=== PATIENT | female | born 1970 | race Caucasian/White ===

== ENCOUNTER 2022-12-29 08:07 | Day surgery (SDC) | payer BC ==
[~2022-12-29 08:07] MED LIST: Sodium Chloride 0.9% 1000 ML 1,000 ML IV SCH
[2022-12-29 08:32] LABS: Hematocrit 41.3 % (35-47); Hemoglobin 13.2 g/dL (12.0-16.0); Mean Cell Volume 88.6 fL (78-100); Mean Corpuscular Hemoglobin 28.3 pg (26-32); Mean Platelet Volume 10.9 fL (7.5-11.0); Platelet Count 196 x10^3/uL (150-450); Red Blood Count 4.66 x10^6/uL (4.1-5.4); Red Cell Distribution Width 13.9 % (11.5-14.0); White Blood Count 6.4 x10^3/uL (4.0-10.5)
[2022-12-29 08:55] LABS: ALBUMIN 4.1 g/dL (3.5-5.0); ALKALINE PHOSPHATASE 79 U/L (38-126); ANION GAP 10.2 MEQ/L (5-15); BLOOD UREA NITROGEN 13 mg/dL (7-17); CHLORIDE 103 mmol/L (98-107); Calcium 8.7 mg/dL (8.4-10.2); Carbon Dioxide 31 mmol/L (22-30); Creatinine 1 0.53 mg/dL (0.52-1.04); EST GLOMERULAR FILTRATION RATE > 60.0 ML/MIN; Glucose 134 mg/dL (74-106); Potassium 3.9 mmol/L (3.5-5.1); SGOT/AST 143 U/L (14-36); SGPT/ALT 201 U/L (0-35); SODIUM 140 mmol/L (137-145); Total Protein 7.3 g/dL (6.3-8.2)
[2022-12-29] MEDS ORDERED: Lactated Ringers 1,000 ML IV SCH (09:00)
[2022-12-29] MEDS ORDERED: CEFAZOLIN 2 GM-D5W BAG** 2 GM/50 ML ML IV SCH (09:00)
[2022-12-29] MEDS ORDERED: Marcaine Mpf 0.5% Vial 30 Ml ONE (10:14)
[2022-12-29] MEDS ORDERED: Xylocaine 1% Vial 30 ML PF IJ ONE (10:14)
[2022-12-29] MEDS ORDERED: Versed 2 MG/2 ML Injection ONE ×2 (11:11→11:19)
[2022-12-29 12:16] VITALS: O2SAT 96
--- NOTE | 2022-12-29 12:27 | XRAY ---
Indication: Right foot bone biopsy. Intraoperative fluoroscopy provided for 17 seconds. 5 digital spot images ultimately demonstrates bone biopsy needle tip medial to head 1st metatarsal. Correlate with intraoperative findings/report.
[2022-12-29 12:42] VITALS: BP 133/75; PULSE 67
--- NOTE | 2022-12-29 14:34 | OP ---
SURGERY DATE/TIME: 12/29/2022 1108 PREOPERATIVE DIAGNOSES: 1) Osteomyelitis. 2) Diabetic foot ulcer right great toe. 3) Peripheral neuropathy. 4) Hallux valgus contracture. 5) Right foot pain. POSTOPERATIVE DIAGNOSES: 1) Osteomyelitis. 2) Diabetic foot ulcer right great toe. 3) Peripheral neuropathy. 4) Hallux valgus contracture. 5) Right foot pain. PROCEDURE: Bone biopsy of distal, proximal and first metatarsal right foot and great toe. SURGEON: Freedom Roldan DPM. MANAGER PHARMACY: None. ANESTHESIA: MAC. HEMOSTASIS: Pressure dressing. ESTIMATED BLOOD LOSS: Minimal. MATERIALS: Jamshidi needle x3. INJECTABLES: 20 cc of 1:1 mixture of 1% lidocaine plain and 0.5% bupivacaine plain injected in a Grey block-type fashion. INDICATION FOR SURGERY: Jovon is a very pleasant 52-year-old female well known to my service for a diabetic foot ulcer. MRI was taken as the patient was not progressing with healing of the ulceration and this demonstrated increased signal on T2 and distal phalanx and first metatarsal. There was no uptake on the proximal phalanx. There was positive osteomyelitis to the first metatarsal. Therefore she has chosen to proceed with a bone biopsy of these three bones. The patient understands all risks, complications and benefits of surgical intervention including but not limited to infection, hematoma, seroma, possibility of delayed wound healing or nonwound healing and possibility of need for further surgical intervention. This is likely planned to be a staged procedure based on what we find today versus an attempt at limb salvage. From that standpoint the patient understands the risks and wishes to proceed. DESCRIPTION OF PROCEDURE AND FINDINGS: The patient is brought into the OR and placed on the OR table in the supine position. At this time monitored anesthesia care was administered until the patient was sedated and the right lower extremity was prepped and draped in the typical sterile fashion and lowered onto the surgical field. At this time under fluoroscopic guidance, three separate Jamshidi needles were utilized at the medial aspect of the distal phalanx, medial aspect of the proximal phalanx and medial aspect of the first metatarsal. Bone biopsies were performed utilizing a Jamshidi needle. From that standpoint the bone biopsies were handed off the field for pathologic assessment. No soft tissue cultures were taken at this time as this is planned to be staged procedure and this will help to determine what the next step in proceeding with surgical intervention. The Jamshidi needle sites were sutured. The wound was dressed utilizing a dressing consisting of Betadine, Adaptic, 4x4, Kerlix and KOMAL. Following this, the patient was reversed from anesthesia and returned to the postoperative anesthesia care unit with vital signs stable and vascular status intact. The patient handled the anesthesia as well as the procedure without significant complication. Postoperative orders as indicated in the patient's discharge chart.
--- NOTE | 2023-01-01 12:23 | XRAY ---
17 seconds of fluoroscopy was used in surgery for a right foot bone biopsy.
== END 2022-12-29 13:06 | disposition home or self-care (01) ==
LOC: SDC 08:07
PROVIDERS: ATTEND Podiatrist Foot & Ankle Surgery
DX: M86.9 Osteomyelitis, unspecified (principal); E11.621 Type 2 diabetes mellitus with foot ulcer; E11.42 Type 2 diabetes mellitus with diabetic polyneuropathy; M20.11 Hallux valgus (acquired), right foot; M79.671 Pain in right foot
CPT/HCPCS: 20240; 36415; 73630; 76000; 80053; 82947; 85027; J0690; J2001; J2250

== ENCOUNTER 2023-01-12 06:00 | Day surgery (SDC) | payer BC ==
[2023-01-12] MEDS ORDERED: Xylocaine 1% Vial 30 ML PF IJ ONE (06:22)
[2023-01-12] MEDS ORDERED: Marcaine Mpf 0.5% Vial 30 Ml ONE (06:22)
[2023-01-12] MEDS ORDERED: DIPRIVAN 200 MG/20 ML IV ONE ×2 (06:23→07:54)
[2023-01-12] MEDS ORDERED: Versed 2 MG/2 ML Injection ONE (06:27)
[2023-01-12 06:29] LABS: Hemoglobin 13.3 g/dL (12.0-16.0); Mean Cell Volume 88.4 fL (78-100); Mean Corpuscular Hemoglobin 28.7 pg (26-32); Mean Corpuscular Hgb Concent. 32.4 g/dL (32-36); Mean Platelet Volume 11.7 fL (7.5-11.0); Platelet Count 216 x10^3/uL (150-450); Red Blood Count 4.64 x10^6/uL (4.1-5.4); Red Cell Distribution Width 13.2 % (11.5-14.0); White Blood Count 7.4 x10^3/uL (4.0-10.5)
[2023-01-12] MEDS ORDERED: CEFAZOLIN 2 GM-D5W BAG** 2 GM/50 ML ML IV SCH (06:30)
[2023-01-12] MEDS ORDERED: Lactated Ringers 1,000 ML IV SCH (06:30)
[2023-01-12 06:33] VITALS: RESP 16
[2023-01-12 06:36] LABS: ALBUMIN 4.1 g/dL (3.5-5.0); ALKALINE PHOSPHATASE 98 U/L (38-126); ANION GAP 12.1 MEQ/L (5-15); BLOOD UREA NITROGEN 13 mg/dL (7-17); CHLORIDE 106 mmol/L (98-107); Calcium 8.8 mg/dL (8.4-10.2); Carbon Dioxide 28 mmol/L (22-30); Creatinine 1 0.51 mg/dL (0.52-1.04); EST GLOMERULAR FILTRATION RATE > 60.0 ML/MIN; Glucose 131 mg/dL (74-106); Potassium 3.9 mmol/L (3.5-5.1); SGOT/AST 93 U/L (14-36); SGPT/ALT 213 U/L (0-35); SODIUM 142 mmol/L (137-145); Total Protein 7.1 g/dL (6.3-8.2)
[2023-01-12 06:38] LABS: INR 0.99 (0.8-3.0); PROTIME 10.8 SECONDS (9.4-12.5); PTT 26.6 SECONDS (25.1-36.5)
[2023-01-12] MEDS ORDERED: SUBLIMAZE 100 MCG/2 ML ONE (06:54)
[2023-01-12 08:53] VITALS: TEMP 97
[2023-01-12 09:13] VITALS: BP 130/78; PULSE 60; O2SAT 95
--- NOTE | 2023-01-12 09:20 | XRAY ---
Indication: Right 1st phalanx IP joint arthrodesis. Intraoperative fluoroscopy provided for 42 seconds. 8 digital spot images submitted for interpretation demonstrates arthrodesis 1st phalanx IP joint with single screw and orthopedic stable. Correlate with intraoperative findings/report.
--- NOTE | 2023-01-12 09:35 | OP ---
SURGERY DATE/TIME: 01/12/2023 0704 PREOPERATIVE DIAGNOSES: 1) Right hallux malleus. 2) Peripheral neuropathy. 3) History of diabetic foot wound. 4) Difficulty with ambulation right foot. POSTOPERATIVE DIAGNOSES: 1) Right hallux malleus. 2) Peripheral neuropathy. 3) History of diabetic foot wound. 4) Difficulty with ambulation right foot. PROCEDURE: Distal interphalangeal joint arthrodesis right great toe. SURGEON: Freedom Roldan DPM. TROLLEY OPERATOR: None. ANESTHESIA: Monitored anesthesia care with a preoperative local. HEMOSTASIS: Ankle tourniquet set to 250 mm of Mercury for 25 total tourniquet minutes. ESTIMATED BLOOD LOSS: Minimal. INJECTABLES: 15 cc of 1:1 mixture of 1% lidocaine plain and 0.5% bupivacaine plain injected in hallux block-type fashion. INDICATION FOR SURGERY: Jovon is a very pleasant 52-year-old female well known to my service for hallux malleus peripheral neuropathy and a wound that delayed healing over the course of the last several weeks. The position of the toe was the interphalangeal joint distal tip of the toe at its lateral extent secondary to a valgus angulation as well as hallux malleus. As a result, she has had trouble healing the wound. There was initially some concern of osteomyelitis. MRI demonstrated some increasing signal on T2 and drop out on T1 to the distal interphalangeal joint as well as the first metatarsal. At that time bone biopsies were taken demonstrating negative for osteomyelitis. At this time due to the fact that the patient has had significant amount of issue with healing, we have decided surgical offloading was necessary. At this time the patient understands all risks, complications and benefits of surgical intervention including but not limited to infection, hematoma, seroma, possibility of delayed wound healing, nonwound healing, possibility of infection of the bone and possible need for amputation at a later date. No guarantees have been provided as to the outcome of surgical intervention. At this time the patient was willing to proceed. Plenty of time was allowed for the patient to ask questions which were answered to her apparent satisfaction. DESCRIPTION OF PROCEDURE AND FINDINGS: At this time the patient is brought into the OR and placed on the OR table and monitored anesthesia care was administered until the patient was sedated. A well-padded ankle tourniquet was applied to the patient's right ankle and the tourniquet was set to 250 mm of Mercury. At this time the foot was prepped and draped in typical sterile fashion, lowered onto the surgical field. At this time an Esmarch was utilized to exsanguinate the foot and the tourniquet was set to 250 mm of Mercury. A horizontal incision was made over the distal interphalangeal joint where there was a significant amount of contracture quickly identifying slightly ankylosed distal interphalangeal joint. Careful dissection was carried down being careful not to damage any neurovascular structures. Once the joint was identified it was resected utilizing an 18 mm sagittal saw. At this time a larger wedge was taken at the dorsal aspect and the medial aspect in order to bring the toe into a normal alignment from its valgus and plantar flexed position at the distal interphalangeal joint. Once this was checked under fluoroscopic guidance, position was assessed and deemed to be adequate. Copious amounts of sterile saline were utilized to flush the surgical site. A 2 mm drill was utilized to fenestrate the surface. A K-wire was then retrograded out of the distal tip of the toe and then anterograded through the proximal phalanx utilizing the longitudinal cortex of the bone to insure adequate fixation this was once again checked under fluoroscopic guidance and a 4.0 x 40 VPC screw was then introduced gaining excellent compression. Following this a 10 x 8 Unitus Staple was then introduced from a dorsomedial aspect gaining even further compression of the joint insuring adequate compression. Copious amounts of sterile saline were then utilized to flush the surgical site. The capsule and the tendon were repaired utilizing 4-0 Monocryl. The subcu was then repaired utilizing 4-0 Monocryl in a simple interrupted buried-type fashion and then the skin was then coapted utilizing horizontal mattress-type fashion everting the skin edges. A dressing consisting of Betadine paint to the toe, Adaptic, 4x4, Kerlix and KOMAL was then applied to the foot. The patient was then reversed from anesthesia and returned to the postoperative anesthesia care unit with vital signs stable and vascular status intact. The patient handled the anesthesia as well as the procedure without significant complications. Postoperative orders as indicated in the patient's discharge chart.
--- NOTE | 2023-01-12 09:52 | XRAY ---
42 seconds of fluoroscopy was used in surgery for a right 1st phalanx IP joint arthrodesis.
== END 2023-01-12 09:25 | disposition home or self-care (01) ==
LOC: SDC 06:00
PROVIDERS: ATTEND Podiatrist Foot & Ankle Surgery
DX: M20.31 Hallux varus (acquired), right foot (principal); G62.9 Polyneuropathy, unspecified; R26.2 Difficulty in walking, not elsewhere classified; Z86.31 Personal history of diabetic foot ulcer; Z79.01 Long term (current) use of anticoagulants
CPT/HCPCS: 28755; 36415; 73630; 76000; 80053; 85027; 85610; 85730; C1713; J0690; J2001; J2250; J2704; J3010

== ENCOUNTER 2023-06-15 07:36 | Day surgery (SDC) | payer BC ==
[2023-06-15] MEDS ORDERED: Lactated Ringers 1,000 ML IV ONE (08:15)
[2023-06-15] MEDS ORDERED: CEFAZOLIN 2 GM-D5W BAG** 2 GM/50 ML ML IV ONE (08:15)
[2023-06-15 08:29] LABS: Hematocrit 35.1 % (35-47); Hemoglobin 10.9 g/dL (12.0-16.0); Mean Corpuscular Hemoglobin 26.7 pg (26-32); Mean Corpuscular Hgb Concent. 31.1 g/dL (32-36); Mean Platelet Volume 10.8 fL (7.5-11.0); Platelet Count 217 x10^3/uL (150-450); Red Blood Count 4.08 x10^6/uL (4.1-5.4); White Blood Count 6.1 x10^3/uL (4.0-10.5)
[2023-06-15] MEDS ORDERED: Lactated Ringers 1,000 ML IV SCH (08:30)
[2023-06-15] MEDS ORDERED: CEFAZOLIN 2 GM-D5W BAG** 2 GM/50 ML ML IV SCH (08:30)
[2023-06-15 08:42] LABS: ALBUMIN 3.7 g/dL (3.5-5.0); ANION GAP 10.8 MEQ/L (5-15); BILIRUBIN,TOTAL 0.6 mg/dL (0.2-1.3); Calcium 8.5 mg/dL (8.4-10.2); Creatinine 1 0.41 mg/dL (0.52-1.04); EST GLOMERULAR FILTRATION RATE 117.6 ML/MIN; Potassium 3.8 mmol/L (3.5-5.1); Total Protein 6.9 g/dL (6.3-8.2)
[2023-06-15] MEDS ORDERED: SUBLIMAZE 100 MCG/2 ML ONE (10:08)
[2023-06-15] MEDS ORDERED: Versed 2 MG/2 ML Injection ONE (10:08)
[2023-06-15] MEDS ORDERED: Xylocaine-Mpf 2% 5 Ml Vial ONE (10:08)
[2023-06-15] MEDS ORDERED: DIPRIVAN 200 MG/20 ML IV ONE (10:08)
[2023-06-15] MEDS ORDERED: XYLOCAINE 1% HCL 20 ML MDV IJ ONE (10:16)
[2023-06-15] MEDS ORDERED: Marcaine Mpf 0.5% Vial 30 Ml IJ ONE (10:16)
--- NOTE | 2023-06-15 11:20 | XRAY ---
Indication: Right second toe bone biopsy. Intraoperative fluoroscopy provided for 8 seconds. 4 digital spot images submitted for interpretation demonstrates bone biopsy of distal 2nd phalanx. There has been arthrodesis 1st phalanx with intact hardware. Correlate with intraoperative findings/report.
--- NOTE | 2023-06-15 11:20 | XRAY ---
Indication: Left foot hallux bone biopsy. Intraoperative fluoroscopy provided for 4 seconds. 2 digital spot images submitted for interpretation demonstrates bone biopsy needle adjacent to tuft 1st phalanx. Correlate with intraoperative findings/report.
[2023-06-15 11:21] VITALS: RESP 16
[2023-06-15 11:32] VITALS: BP 126/81; PULSE 68; TEMP 98.4; O2SAT 99
[2023-06-15] MEDS ORDERED: Sodium Chloride 0.9% 10 ML FLUSH Syringe PICC PRN (11:52)
--- NOTE | 2023-06-15 15:07 | XRAY ---
4 seconds of fluoroscopy was used in surgery for a left hallux bone biopsy.
--- NOTE | 2023-06-15 15:07 | XRAY ---
8 seconds of fluoroscopy was used in surgery for a right 2nd toe bone biopsy.
--- NOTE | 2023-06-19 10:06 | OP ---
SURGERY DATE/TIME: 06/15/2023 1024 PREOPERATIVE DIAGNOSES: 1) Osteomyelitis right second digit. 2) Osteomyelitis left hallux. 3) Diabetic peripheral neuropathy. 4) Controlled diabetes. 5) Digital contractures. 6) Chronic ulceration. POSTOPERATIVE DIAGNOSES: 1) Osteomyelitis right second digit. 2) Osteomyelitis left hallux. 3) Diabetic peripheral neuropathy. 4) Controlled diabetes. 5) Digital contractures. 6) Chronic ulceration. PROCEDURES: 1) Incision and drainage with bone debridement to distal tip of right second toe distal phalanx. 2) Incision and drainage with bone debridement to the distal tip of the left hallux with bone biopsy. SURGEON: Freedom Roldan DPM. PLANTING MACHINE OPERATOR: None. ANESTHESIA: Monitored anesthesia care with intraoperative local block consisting of 20 cc of a 1:1 mixture of 1% lidocaine plain and 0.5% bupivacaine plain injected in a digital and hallux block respectively of 10 cc each. HEMOSTASIS: Pressure dressing. ESTIMATED BLOOD LOSS: Approximately 5 cc. MATERIALS: 3-0 Nylon. INJECTABLES: 20 cc of 1:1 mixture of 1% lidocaine plain and 0.5% bupivacaine plain, 10 cc injected into the left hallux in a hallux block-type fashion and 10 cc injected in a digital block to the second digit of the right foot. INDICATION FOR SURGERY: Jovon is a very pleasant 52-year-old female who presented to my office initially for a right hallux ulceration, concerns for osteomyelitis were brought up with a MRI after several weeks of failing conservative therapy. Following bone biopsies confirming that the bone was clean of infection, the wound was healed and an interphalangeal joint fusion was performed to the right hallux. The patient presented approximately six weeks later with two new wounds to the second digit of the right foot and the hallux of the left foot. As a result, the patient indicates that the wound started shortly thereafter. The previous wound had healed. The patient did not inform us for approximately three weeks prior to. The wounds did appear infected and did grow gram-positive bacteria. She was placed on two weeks of oral antibiotics and also in that period of time did have some cardiac intervention with failed stent placement. Following this the patient was able to get a MRI approximately five weeks after the wounds had begun which demonstrated some clinical indications and some radiographic indications demonstrating a T2 uptake and T1 dropout characteristic of osteomyelitis. At this time, the radiologic appearance does appear to be isolated to the distal phalanx of the second and the hallux. As a result discussion was held with the patient in regards to options. We would like to proceed with a conservative enough option that would not result in an amputation and decided on six to eight weeks of IV antibiotics as well as bone biopsies and debridement from a cosmetic standpoint. The patient would not notice a significant difference following the debridement particularly the second digit of the right foot if successful essentially debridement for the purpose of eradicating the distal phalanx and hopefully stop the spread of the infection. The patient understands this and wishes to proceed. The patient understands all risks, complications and benefits of surgical intervention at this time including but not limited to infection, hematoma, seroma, possibility of delayed wound healing, failed intraoperative intervention and possible need for amputation of the digits to the bilateral lower extremities. For this reason, no guarantees were provided as to the outcome. It is at this time we decided to proceed. DESCRIPTION OF PROCEDURE AND FINDINGS: The patient is brought into the OR and placed on the OR table in the supine position. At this time monitored anesthesia care was administered until the patient was sedated. The bilateral lower extremities were prepped and draped in the typical sterile fashion and lowered onto the surgical field. At this time, attention was directed to the left hallux where the wound was identified and bone was exposed. Debridement took place utilizing a rongeur and curette down to the level of the bone. From that standpoint, a small poke hole was made utilizing a 15 and a trocar bone biopsy was pulled one for culture and one for pathology, this was handed off the field at this time. Following this copious amounts of sterile saline were utilized to flush the surgical site and a single stitch was made at the poke hole where the trocar bone biopsies were obtained. Following this, attention was directed to the second digit where a fish-mouth incision was made at the distal tip of the digit. Rongeur was utilized to in effect remove the distal phalanx entirely however leaving the cosmetic appearance of the second digit intact this was handed off the field for both path and culture at this time. Following this, copious amounts of sterile saline were utilized to flush the surgical site. 3-0 Nylon was utilized in a trauma suture type fashion to retain tension on the edges of the wound while the central aspect was allowed open to drain. Following this, a dressing consisting of Betadine, 2x2 and Coban was applied to the bilateral digits. The patient was then reversed from anesthesia and returned to the postoperative anesthesia care unit with vital signs stable and vascular status intact. The patient handled the anesthesia as well as the procedure without significant complication. Postoperative orders as indicated in the patient's discharge chart.
== END 2023-06-15 11:55 | disposition home or self-care (01) ==
LOC: SDC 07:36 → EDSTATUS 14:29
PROVIDERS: ATTEND Podiatrist Foot & Ankle Surgery
DX: M86.9 Osteomyelitis, unspecified (principal); E11.42 Type 2 diabetes mellitus with diabetic polyneuropathy; M62.461 Contracture of muscle, right lower leg; M62.462 Contracture of muscle, left lower leg; E11.621 Type 2 diabetes mellitus with foot ulcer
CPT/HCPCS: 28005; 36415; 73630; 76000; 80053; 82947; 85027; 87046; 87070; 87075; 87116; 87205; 87206; 93005; J0690; J1642; J2250; J2704; J3010

== ENCOUNTER 2023-07-05 10:02 | Day surgery (SDC) | payer BC ==
[~2023-07-05 10:02] MED LIST changes: +Marcaine Mpf 0.5% Vial 30 Ml ONE; -Sodium Chloride 0.9% 1000 ML 1,000 ML IV SCH; +Xylocaine 1% Vial 30 ML PF IJ ONE
[2023-07-05] MEDS ORDERED: CEFAZOLIN 2 GM-D5W BAG** 2 GM/50 ML ML IV SCH (10:30)
[2023-07-05] MEDS ORDERED: Lactated Ringers 1,000 ML IV SCH (10:30)
--- NOTE | 2023-07-05 13:41 | XRAY ---
Indication: Right 2nd toe amputation. Intraoperative fluoroscopy provided for 2 seconds. 2 digital spot images submitted for interpretation demonstrates total amputation 2nd toe. Correlate with intraoperative findings/report.
[2023-07-05] MEDS ORDERED: Sodium Chloride 0.9% 10 ML FLUSH Syringe PICC PRN (14:34)
[2023-07-05 14:37] VITALS: O2SAT 98
[2023-07-05 14:51] VITALS: RESP 18; TEMP 97.8
[2023-07-05 14:57] VITALS: BP 110/62; PULSE 72
--- NOTE | 2023-07-05 16:47 | XRAY ---
2 seconds of fluoroscopy was used in surgery for a right 2nd toe amputation.
--- NOTE | 2023-07-06 11:49 | OP ---
SURGERY DATE/TIME: 07/05/2023 1302 PREOPERATIVE DIAGNOSES: 1) Osteomyelitis second digit right foot. 2) Diabetic peripheral neuropathy. 3) Diabetes, controlled. 4) Diabetic foot ulcer of left hallux. 5) Hallux malleus contracture left hallux. POSTOPERATIVE DIAGNOSES: 1) Osteomyelitis second digit right foot. 2) Diabetic peripheral neuropathy. 3) Diabetes, controlled. 4) Diabetic foot ulcer of left hallux. 5) Hallux malleus contracture left hallux. PROCEDURES: 1) Amputation to the level of first metatarsophalangeal joint right second digit with primary closure right foot. 2) Left hallux wound debridement. Postoperative measurements were 1.4 x 1.2 x 0.4. SURGEON: Freedom Roldan DPM. SUPERVISORY CBP OFFICER: None. HEMOSTASIS: Pressure dressing. ANESTHESIA: Monitored anesthesia care. ESTIMATED BLOOD LOSS: Approximately 3 cc. MATERIALS: 4-0 Monocryl, 3-0 Nylon. INJECTABLES: 10 cc of a 1:1 mixture of 1% lidocaine plain and 0.5% bupivacaine plain injected in a digital block-type fashion. INDICATION FOR SURGERY: Jovon is a very pleasant 52-year-old female very well known to my service for multiple wounds to the bilateral lower extremities which have subsequently healed. Unfortunately on our last encounter, the patient did have osteomyelitis of the distal phalanx of the second digit. An aggressive bone debridement took place. However, there were significant deformity and some residual indications on clean margin that there is continued osteomyelitis. Options were discussed with the patient in regards to the second digit of the right foot and we decided to proceed with an amputation at the level of the metatarsophalangeal joint as this will keep us out of a long drawn out process and allow us to proceed with addressing the soft tissue infection instead of addressing the bone infection. Bone biopsies were taken in respect to the left distal phalanx demonstrating no osteomyelitis. However, she still has a significantly sized wound to the left lower extremity and decision was made to proceed with a debridement of the left hallux on today's encounter. At this time, the patient understands all risks, complications and benefits of surgical intervention at this time including but not limited to infection, hematoma, seroma, possibility of delayed wound healing, nonwound healing and possible need for surgical intervention at a later date. No guarantees were provided as to the outcome. It is at this time we decided to proceed. DESCRIPTION OF PROCEDURE AND FINDINGS: The patient is brought into the OR and placed on the OR table in the supine position. At this time, monitored anesthesia care was administered until the patient was sedated. The bilateral lower extremities was prepped and draped in the typical sterile fashion and lowered onto the surgical field. At this time, an injection consisting of 10 cc of a 1:1 mixture of 1% lidocaine plain was injected in a digital block to the second digit of the right foot. At this time, a fish mouth incision was made at the base of the second digit. The incision was carried down to the level of bone utilizing a 15 blade this is carried out staying perpendicular to the longitudinal axis of the skin edge preventing any skiving and disarticulating the second digit. Copious amounts of sterile saline were utilized to flush the surgical site. The second digit was handed off the surgical field for pathologic assessment. At this time, the tendons were debrided. Wound edges were then coapted utilizing 4-0 Monocryl in subcutaneous fashion in a simple interrupted buried-type fashion and then 3-0 Nylon was utilized in a simple interrupted-type fashion in order to coapt the skin edges. A dressing consisting of Betadine, Adaptic, 4x4, Kerlix and KOMAL was applied to the patient's right foot. From that standpoint, attention was directed to the left hallux where predebridement the wound measured approximately 1.1 x 1.2 x 0.3 cm. At this time, wound debridement took place taking care of any nonviable or necrotic tissue at the wound margin and the base of the wound until a healthy bleeding base was identified. From this standpoint, wound measurements were taken once again and a wound demonstrating 1.4 x 1.2 x 0.4 was demonstrated. Copious amounts of sterile saline were utilized to flush this site. A dressing consisting of Betadine, Adaptic, 4x4 and Coban was applied to the patient's left foot. The patient was reversed from anesthesia and returned to the postoperative anesthesia care unit with vital signs stable and vascular status intact. The patient handled the anesthesia as well as the procedure without significant complication. Postoperative orders as indicated in the patient's discharge chart.
== END 2023-07-05 15:00 | disposition home or self-care (01) ==
LOC: SDC 10:02
PROVIDERS: ATTEND Podiatrist Foot & Ankle Surgery
DX: M86.9 Osteomyelitis, unspecified (principal); E11.42 Type 2 diabetes mellitus with diabetic polyneuropathy; E11.621 Type 2 diabetes mellitus with foot ulcer; M20.5X2 Other deformities of toe(s) (acquired), left foot
CPT/HCPCS: 28820; 73630; 76000; 82947; 97597; J0690; J1642; J2001

== ENCOUNTER 2023-08-28 06:12 | Day surgery (SDC) | payer BC ==
[2023-08-28] MEDS ORDERED: Lactated Ringers 1,000 ML IV ONE (06:18)
[2023-08-28] MEDS ORDERED: Marcaine Mpf 0.5% Vial 30 Ml ONE (06:18)
[2023-08-28] MEDS ORDERED: Xylocaine 1% Vial 30 ML PF IJ ONE (06:18)
[2023-08-28] MEDS: CEFAZOLIN 2 GM-D5W BAG** 2 GM/50 ML ML IV SCH (06:31)
[2023-08-28] MEDS: Lactated Ringers 1,000 ML IV SCH (06:32)
[2023-08-28 06:37] VITALS: RESP 18
[2023-08-28 06:41] LABS: Hematocrit 37.3 % (35-47); Hemoglobin 11.6 g/dL (12.0-16.0); Mean Cell Volume 84.8 fL (78-100); Mean Corpuscular Hemoglobin 26.4 pg (26-32); Mean Corpuscular Hgb Concent. 31.1 g/dL (32-36); Platelet Count 225 x10^3/uL (150-450); Red Cell Distribution Width 15.1 % (11.5-14.0); White Blood Count 6.8 x10^3/uL (4.0-10.5)
[2023-08-28 06:54] LABS: ANION GAP 11.1 MEQ/L (5-15); BILIRUBIN,TOTAL 0.4 mg/dL (0.2-1.3); Calcium 8.8 mg/dL (8.4-10.2); Creatinine 1 0.58 mg/dL (0.52-1.04); EST GLOMERULAR FILTRATION RATE 108.1 ML/MIN; Total Protein 6.8 g/dL (6.3-8.2)
[2023-08-28] MEDS ORDERED: DIPRIVAN 200 MG/20 ML IV ONE ×2 (06:54→07:38)
[2023-08-28] MEDS ORDERED: Xylocaine-Mpf 2% 5 Ml Vial ONE (06:55)
[2023-08-28] MEDS ORDERED: SUBLIMAZE 100 MCG/2 ML ONE (06:55)
[2023-08-28] MEDS ORDERED: Versed 2 MG/2 ML Injection ONE (06:56)
[2023-08-28] MEDS ORDERED: PHENYLEPHRINE HCL ONE (07:35)
[2023-08-28 08:48] VITALS: TEMP 96.9
[2023-08-28 09:01] VITALS: BP 108/68; PULSE 64; O2SAT 100
--- NOTE | 2023-08-29 10:44 | OP ---
SURGERY DATE/TIME: 08/28/2023 0712 PREOPERATIVE DIAGNOSES: 1) Osteomyelitis distal phalanx left hallux. 2) Peripheral neuropathy. 3) Chronic diabetic foot ulcer. 4) Left foot pain. POSTOPERATIVE DIAGNOSES: 1) Osteomyelitis distal phalanx left hallux. 2) Peripheral neuropathy. 3) Chronic diabetic foot ulcer. 4) Left foot pain. PROCEDURES: Disarticulation with amputation of left hallux first metatarsophalangeal joint. SURGEON: Freedom Roldan DPM. CODE CLERK: None. HEMOSTASIS: Pressure dressing. ANESTHESIA: Monitored anesthesia care. ESTIMATED BLOOD LOSS: Approximately 10 cc. MATERIALS: 2-0 Vicryl, 3-0 Nylon. INJECTABLES: 20 cc of a 1:1 mixture of 1% lidocaine plain and 0.5% bupivacaine plain injected in Grey block-type fashion. INDICATION FOR SURGERY: Jovon is a very pleasant 52-year-old female well known to our service for multiple diabetic foot ulcers. We have attempted limb salvage efforts which have worked to the right hallux. Unfortunately, did not work well for the left. Approximately two months ago we did perform bone biopsies to the left hallux which demonstrated no osteomyelitis. In the time between then, the patient had subsequent healed and then reopened and developed an infection. At this time x-rays were taken comparing from that time to now and there does appear to be osteolytic appearance to the bone consistent with osteomyelitis despite our attempts at salvage. At this time, options were discussed and the patient was amenable to proceeding with amputation of the left hallux. The patient understands all risks, complications and benefits of surgical intervention at this time including but not limited to infection, hematoma, seroma, possibility of delayed wound healing, nonwound healing and possible surgical intervention at a later date. Of particular interest in this case, I am concerned about the potential for dehiscence. Her weightbearing status following the procedure will be nonweightbearing for at least the first three weeks. The patient understands all of this and wishes to proceed at this time. DESCRIPTION OF PROCEDURE AND FINDINGS: The patient is brought into the OR and placed on the OR table in the supine position. At this time, the left lower extremity is prepped and draped in the typical sterile fashion and lowered onto the surgical field. At this time, a skin marker was utilized to plan out surgical incision in a medial racket-type fashion extending over the metatarsophalangeal joint and extending past the proximal phalangeal base in order to get adequate skin for closure. This was performed utilizing a 10 blade and prevent any scarring of the tissue going circumferentially around the base of the hallux. This was articulated utilizing a pair of dissection scissors making sure not to damage any neurovascular structures outside of the amputation area. From this standpoint, copious amounts of Bactisure was utilized to flush the surgical site. 3 liters of sterile saline were utilized to flush the Bactisure in the visible wound. Following this 2-0 Vicryl was then utilized to coapt the subcutaneous skin edges in a simple interrupted buried-type fashion and then 3-0 Nylon was utilized in an alternating horizontal mattress and simple interrupted-type fashion to coapt the skin edges under minimal tension. The patient was then dressed with a dressing consisting of Betadine, Adaptic, 4x4, Kerlix, ABD and KOMAL. The patient handled the anesthesia as well as the procedure without significant complication. Postoperative orders as indicated in the patient's discharge chart.
== END 2023-08-28 09:08 | disposition home or self-care (01) ==
LOC: SDC 06:12
PROVIDERS: ATTEND Podiatrist Foot & Ankle Surgery
DX: M86.9 Osteomyelitis, unspecified (principal); E11.42 Type 2 diabetes mellitus with diabetic polyneuropathy; E11.621 Type 2 diabetes mellitus with foot ulcer; L97.529 Non-pressure chronic ulcer of other part of left foot with unspecified severity; M79.672 Pain in left foot
CPT/HCPCS: 28820; 36415; 80053; 82947; 85027; A6260; J0690; J2001; J2250; J2371; J2704; J3010

== ENCOUNTER 2024-06-17 17:07 | Observation (INO) | payer BC ==
[2024-06-17] MEDS ORDERED: Klor Con ONE ×2 (18:42→21:48)
[2024-06-17] MEDS: Klor Con PO ONE ×2 (18:44→22:07)
[2024-06-17 18:48] LABS: Absolute Neutrophil Ct (ANC) 3.92 x10^3/uL (1.56-6.13); BASOPHIL % 0.5 % (0.1-1.2); Basophil (Absolute #) 0.03 x10^3/uL (0.01-0.08); Eosinophil % 1.2 % (0.7-5.8); Eosinophil (Absolute #) 0.08 x10^3/uL (0.04-0.36); Hemoglobin 7.7 g/dL (11.2-15.7); IMMATURE GRAN # 0.02 x10^3u/L (0.001-0.031); IMMATURE GRAN % 0.3 % (0.001-0.429); Lymphocytes % 27.7 % (19.3-51.7); Mean Cell Volume 82.5 fL (79.4-94.8); Mean Corpuscular Hemoglobin 25.4 pg (25.6-32.2); Mean Corpuscular Hgb Concent. 30.8 g/dL (32.2-35.5); Mean Platelet Volume 10.1 fL (9.4-12.3); Monocyte (Absolute #) 0.64 x10^3/uL (0.24-0.86); Monocytes % 9.9 % (4.7-12.5); Neutrophil % 60.4 % (34.0-71.1); Platelet Count 271 x10^3/uL (182-369); Red Blood Count 3.03 x10^6/uL (3.93-5.22); Red Cell Distribution Width 15.5 % (11.7-14.4); White Blood Count 6.5 x10^3/uL (3.98-10.04)
--- NOTE | 2024-06-17 19:04 | ERPHSYRPT ---
- History of Present Illness Source: patient Exam Limitations: no limitations Patient Subjective Stated Complaint: pt had blood drawn today and potassium was 2.9 Triage Nursing Assessment: Pt brought self to the ER, hypotensive, denies pain, pulses normal, skin n/w/d, no difficulty breathing, no chest pain, pt has been anemic for a month due to a GI bleed but states her numbers went from 7.7 to 7.8 earlier in the month, doesn't appear to be in any distress Hx Influenza Vaccination/Date Given: Yes Hx Pneumococcal Vaccination/Date Given: Yes <DANIEL MORAN - Last Filed: 06/17/24 19:01> <BAUTISTA HUSSEIN - Last Filed: 06/17/24 21:55> - History of Present Illness Time Seen by Provider: 06/17/24 18:01 Physician History: 53-year-old female with history of GI bleed with chronic anemia, coronary artery disease with stenting, hypertension, diabetes mellitus, chronic diarrhea for almost a month with intermittent low potassium is sent in ER by primary care after she had outpatient workup done as a routine and it showed potassium of 2.9. Patient denies any chest pain palpitations or shortness of breath. No abdominal pain nausea or vomiting reported. Patient reports she feels fatigued and tired all the time for almost a month since she had this GI bleed and her usual hemoglobin is around 7.8. No hematemesis or melena or hematochezia reported. (DANIEL MORAN) Allergies/Adverse Reactions: latex Adverse Reaction (Verified 06/17/24 17:26) Rash metformin Adverse Reaction (Verified 06/17/24 17:26) Diarrhea Home Medications: Atorvastatin Calcium [Lipitor 40Mg] 40 mg PO HS 12/28/22 [History] Cholecalciferol (Vitamin D3) [Vitamin D] 50,000 unit PO DAILY 12/28/22 [History] Clopidogrel Bisulfate [PLAVIX Tablet] 75 mg PO DAILY 12/28/22 [History] Empagliflozin [Jardiance] 25 mg PO DAILY 12/28/22 [History] Ezetimibe 10 mg [Zetia 10 MG] 10 mg PO HS 12/28/22 [History] Insulin Aspart [Novolog] 10 unit SQ TID 12/28/22 [History] Insulin Glargine,Hum.rec.anlog [Letiaglar Riapen U-100] 30 unit SQ BID 12/28/22 [History] Levothyroxine Sodium 150 Mcg [Synthroid 150 Mcg] 150 mcg PO DAILY 12/28/22 [History] Metoprolol Succinate [Toprol Xl] 12.5 mg PO DAILY 12/28/22 [History] Semaglutide [Ozempic] 2 mg SQ WEEKLY 12/28/22 [History] Aspirin EC 81 mg [Ecotrin 81 mg] 81 mg PO DAILY 06/13/23 [History] Isosorbide Mononitrate 60 mg [Imdur 60MG] 60 mg PO DAILY 06/15/23 [History] Nitroglycerin 0.4 mg (Ed) [Nitrostat 0.4 MG (ED)] 0.4 mg SL UD PRN 06/15/23 [History] PANTOPRAZOLE 40 mg Tablet [Protonix 40MG Tablet] 40 mg PO QAM 06/17/24 [History] Ropinirole HCl 1 mg PO HS 06/17/24 [History] Travel Risk - International Travel Have you traveled outside of the country in past 3 weeks: No - Emerging Infectious Disease Are you exhibiting symptoms associated with any current EIDs: No <DANIEL MORAN - Last Filed: 06/17/24 19:01> - Review of Systems Constitutional: Fatigue, Weakness Eyes: No Symptoms Ears, Nose, & Throat: No Symptoms Respiratory: No Symptoms Cardiac: No Symptoms Abdominal/Gastrointestinal: Diarrhea Genitourinary Symptoms: No Symptoms Musculoskeletal: No Symptoms Skin: No Symptoms Neurological: No Symptoms Psychological: No Symptoms <DANIEL MORAN - Last Filed: 06/17/24 19:01> - Past Medical History Pertinent Past Medical History: Yes Neurological History: No Pertinent History ENT History: No Pertinent History Cardiac History: High Cholesterol, Hypertension, Other Respiratory History: No Pertinent History Endocrine Medical History: Diabetes Type II, Hypothyroidism Musculoskeletal History: No Pertinent History GI Medical History: No Pertinent History History: No Pertinent History Psycho-Social History: No Pertinent History Female Reproductive Disorders: No Pertinent History Other Medical History: blocked heart arteries, with stents placed - Past Surgical History Past Surgical History: Yes Neuro Surgical History: No Pertinent History Cardiac: Cardiac Catheterization, Cardiac Stent Respiratory: No Pertinent History Gastrointestinal: Cholecystectomy Genitourinary: No Pertinent History Musculoskeletal: Orthopedic Surgery Female Surgical History: Section Other Surgical History: right hand left foot left leg, bariatric, plate in left leg below knee. multiple surgeries left foot, rt foot - Female History Hx Now: No (menopause) - Social History Smoking Status: Never smoker Exposure to second hand smoke: No Drug Use: none - Social Determinants of Health Will the patient participate in the screening: Yes Do you worry about a steady place to live?: No Do you have any problems with any of the following?: No known problems In the past 12 months,have you had to go without utilities?: No Transportation Issues: No Has anyone in your support network made you feel unsafe?: No Have you or anyone in your house had to go without enough: No <DANIEL MORAN - Last Filed: 06/17/24 19:01> - Physical Exam General Appearance: no apparent distress, alert Eye Exam: PERRL/EOMI, pale conjunctivae, other Ears, Nose, Throat Exam: normal ENT inspection, TM abnormal (L) Neck Exam: full range of motion Respiratory Exam: normal breath sounds, lungs clear Cardiovascular Exam: regular rate/rhythm, normal heart sounds Gastrointestinal/Abdomen Exam: soft, normal bowel sounds, No tenderness Back Exam: normal inspection Extremity Exam: normal inspection, normal range of motion Neurologic Exam: alert, oriented x 3, cooperative Skin Exam: pale SpO2 Interpretation: normal SpO2: 100 O2 Delivery: Room Air <DANIEL MORAN - Last Filed: 06/17/24 19:01> - Nursing Vital Signs Nursing Vital Signs: Initial Vital Signs Temperature 98.4 F 06/17/24 17:20 Pulse Rate 88 06/17/24 17:20 Respiratory Rate 10 L 06/17/24 17:20 Blood Pressure 94/55 06/17/24 17:20 O2 Sat by Pulse Oximetry 100 06/17/24 17:20 Pain Scale Pain Intensity 0 - Course EKG Interpreted by Me: RATE (80), Sinus Rhythm, NORMAL AXIS, NORMAL INTERVALS, NORMAL QRS <DANIEL MORAN - Last Filed: 06/17/24 19:01> Ordered Tests: Active Orders 24 hr Category Date Time Status IV Insertion STAT Care 06/17/24 20:25 Active BMP Stat Lab 06/17/24 20:48 Completed CBC W DIFF Stat Lab 06/17/24 18:45 Completed CMP Stat Lab 06/17/24 18:45 Completed MAG [MAGNESIUM] Stat Lab 06/17/24 18:45 Completed POCT GLUCOSE Stat Lab 06/17/24 21:44 Completed UA W/RFX UR CULTURE Stat Lab 06/17/24 19:41 Completed Medication Summary Generic Name Dose Route Start Last Admin Trade Name Freq PRN Reason Stop Dose Admin Sodium Chloride 500 mls @ 100 mls/hr 06/17/24 20:00 06/17/24 20:08 Sodium Chloride 0.9% 500 Ml IV 07/17/24 19:59 100 mls/hr .Q5H BRAVO Administration Discontinued Medications Generic Name Dose Route Start Last Admin Trade Name Freq PRN Reason Stop Dose Admin Potassium Chloride 40 meq 06/17/24 18:28 06/17/24 18:44 Potassium Chloride Tab 10 Meq Tab PO 06/17/24 18:29 40 meq STAT ONE Administration Potassium Chloride Confirm 06/17/24 18:42 Potassium Chloride Tab 10 Meq Tab Administered 06/17/24 18:43 Dose 40 meq .ROUTE .STK-MED ONE Potassium Chloride 40 meq 06/17/24 21:46 Potassium Chloride Tab 10 Meq Tab PO 06/17/24 21:47 STAT ONE Potassium Chloride Confirm 06/17/24 21:48 Potassium Chloride Tab 10 Meq Tab Administered 06/17/24 21:49 Dose 40 meq .ROUTE .STK-MED ONE Lab/Rad Data: Laboratory Result Diagrams 06/17/24 18:45 06/17/24 20:48 Laboratory Results 06/17/24 06/17/24 06/17/24 Range/Units 21:44 20:48 19:41 WBC (3.98-10.04) x10^3/uL RBC (3.93-5.22) x10^6/uL Hgb (11.2-15.7) g/dL Hct (34.1-44.9) % MCV (79.4-94.8) fL MCH (25.6-32.2) pg MCHC (32.2-35.5) g/dL RDW (11.7-14.4) % Plt Count (182-369) x10^3/uL MPV (9.4-12.3) fL Gran % (34.0-71.1) % Immature Gran % (Auto) (0.001-0.429) % Nucleat RBC Rel Count (0.00-0.2) % Eos # (Auto) (0.04-0.36) x10^3/uL Immature Gran # (Auto) (0.001-0.031) x10^3u/L Absolute Lymphs (auto) (1.18-3.74) x10^3/uL Absolute Monos (auto) (0.24-0.86) x10^3/uL Absolute Nucleated RBC (0.00-0.012) x10^3u/L Lymphocytes % (19.3-51.7) % Monocytes % (4.7-12.5) % Eosinophils % (0.7-5.8) % Basophils % (0.1-1.2) % Absolute Granulocytes (1.56-6.13) x10^3/uL Basophils # (0.01-0.08) x10^3/uL Sodium 139 (135-145) mmol/L Potassium 3.0 L* (3.5-5.1) mmol/L Chloride 107 (98-107) mmol/L Carbon Dioxide 28 (22-30) mmol/L Anion Gap 7.3 (5-15) MEQ/L BUN 11 (7-17) mg/dL Creatinine 0.51 L (0.52-1.04) mg/dL Estimated GFR 110.9 ML/MIN Glucose 48 L* (74-106) mg/dL POC Glucometer 91 (74 to 106) mg/dL Calcium 7.8 L (8.4-10.2) mg/dL Magnesium (1.6-2.3) mg/dL Total Bilirubin (0.2-1.3) mg/dL AST (14-36) U/L ALT (0-35) U/L Alkaline Phosphatase (38-126) U/L Serum Total Protein (6.3-8.2) g/dL Albumin (3.5-5.0) g/dL Urine Color Yellow (Yellow) Urine Appearance Clear (Clear) Urine pH 6.0 (4.6-8.0) Ur Specific Colman 1.010 (1.005-1.030) Urine Protein Negative (Negative) Urine Glucose (UA) >=1000 A (Negative) mg/dL Urine Ketones Negative (Negative) Urine Blood Negative (Negative) Urine Nitrite Negative (Negative) Urine Bilirubin Negative (Negative) Urine Urobilinogen 0.2 (0.2) mg/dL Ur Leukocyte Esterase Trace A (Negative) U Hyaline Cast (Auto) NONE SEEN (0-2) /LPF Urine Microscopic RBC 3-5 (0-5) /HPF Urine Microscopic WBC 6-10 A (0-5) /HPF Ur Epithelial Cells None Seen (None Seen) /HPF Urine Bacteria None Seen (None Seen) /HPF Urine Culture Reflexed NO (NO) 06/17/24 06/17/24 Range/Units 18:45 18:45 WBC 6.5 (3.98-10.04) x10^3/uL RBC 3.03 L (3.93-5.22) x10^6/uL Hgb 7.7 L (11.2-15.7) g/dL Hct 25.0 L (34.1-44.9) % MCV 82.5 (79.4-94.8) fL MCH 25.4 L (25.6-32.2) pg MCHC 30.8 L (32.2-35.5) g/dL RDW 15.5 H (11.7-14.4) % Plt Count 271 (182-369) x10^3/uL MPV 10.1 (9.4-12.3) fL Gran % 60.4 (34.0-71.1) % Immature Gran % (Auto) 0.3 (0.001-0.429) % Nucleat RBC Rel Count 0.0 (0.00-0.2) % Eos # (Auto) 0.08 (0.04-0.36) x10^3/uL Immature Gran # (Auto) 0.02 (0.001-0.031) x10^3u/L Absolute Lymphs (auto) 1.80 (1.18-3.74) x10^3/uL Absolute Monos (auto) 0.64 (0.24-0.86) x10^3/uL Absolute Nucleated RBC 0.00 (0.00-0.012) x10^3u/L Lymphocytes % 27.7 (19.3-51.7) % Monocytes % 9.9 (4.7-12.5) % Eosinophils % 1.2 (0.7-5.8) % Basophils % 0.5 (0.1-1.2) % Absolute Granulocytes 3.92 (1.56-6.13) x10^3/uL Basophils # 0.03 (0.01-0.08) x10^3/uL Sodium 138 (135-145) mmol/L Potassium 3.2 L (3.5-5.1) mmol/L Chloride 106 (98-107) mmol/L Carbon Dioxide 28 (22-30) mmol/L Anion Gap 7.1 (5-15) MEQ/L BUN 12 (7-17) mg/dL Creatinine 0.60 (0.52-1.04) mg/dL Estimated GFR 106.6 ML/MIN Glucose 72 L (74-106) mg/dL POC Glucometer (74 to 106) mg/dL Calcium 7.8 L (8.4-10.2) mg/dL Magnesium 1.7 (1.6-2.3) mg/dL Total Bilirubin 0.10 L (0.2-1.3) mg/dL AST 148 H (14-36) U/L ALT 152 H (0-35) U/L Alkaline Phosphatase 101 (38-126) U/L Serum Total Protein 5.0 L (6.3-8.2) g/dL Albumin 2.5 L (3.5-5.0) g/dL Urine Color (Yellow) Urine Appearance (Clear) Urine pH (4.6-8.0) Ur Specific Colman (1.005-1.030) Urine Protein (Negative) Urine Glucose (UA) (Negative) mg/dL Urine Ketones (Negative) Urine Blood (Negative) Urine Nitrite (Negative) Urine Bilirubin (Negative) Urine Urobilinogen (0.2) mg/dL Ur Leukocyte Esterase (Negative) U Hyaline Cast (Auto) (0-2) /LPF Urine Microscopic RBC (0-5) /HPF Urine Microscopic WBC (0-5) /HPF Ur Epithelial Cells (None Seen) /HPF Urine Bacteria (None Seen) /HPF Urine Culture Reflexed (NO) <DANIEL MORAN - Last Filed: 06/17/24 19:01> - Progress Progress: unchanged Counseled pt/family regarding: lab results, diagnosis, need for follow-up <BAUTISTA HUSSEIN - Last Filed: 06/17/24 21:55> - Progress Progress Note: 06/17/24 19:03 Workup is pending, care is transferred to Dr. Vazquez at end of my shift for reevaluation and final disposition. (DANIEL MORAN) 06/17/24 19:13 I assumed care from Dr Moran at 1900, pt vitally stable 06/17/24 20:37 pt admits to significant diarrhea in the past month - will start gentle IV fluid resuscitation, pt does have +1 LE edema b/l on exam repeat BMP pending 06/17/24 21:46 repeat bmp showed potassium decreased to 3.0 pt has had 2 episodes of diarrhea while in ED ordered 40meq potassium additional BG 47 - given orange juice and crackers w/ increase to 91 in setting of recent GI bleed and significant cardiac hx (multiple stents) I believe pt would benefit from potassium repletion and close cardiac monitoring, do not believe pt would be safe discharge while hypokalemic and dehydrated 06/17/24 21:53 I spoke w/ Dr Velasquez regarding pt case, he is willing to accept for obs (BAUTISTA HUSSEIN) Medical Desision Making - Diagnostic Testing Diagnostic test were ordered, analyzed, and reviewed by me: Yes Radiological Interpretation: Reviewed by me - Risk of complications The pt has a high risk of morbidity or mortality based on: Decision regarding hospitilization or escalation of hosp level of care <BAUTISTA HUSSEIN - Last Filed: 06/17/24 21:55> <DANIEL MORAN - Last Filed: 06/17/24 19:01> - Departure Departure Disposition: Observation Critical Care Time: No <BAUTISTA HUSSEIN - Last Filed: 06/17/24 21:55> - Departure Clinical Impression: Hypokalemia, Dehydration Diarrhea Qualifiers: Diarrhea type: unspecified type Qualified Code(s): R19.7 - Diarrhea, un specified Condition: Stable Referrals: ANUJ AYALA MD [Primary Care Provider] - Follow up/PCP as directed
[2024-06-17 19:08] LABS: ALBUMIN 2.5 g/dL (3.5-5.0); ANION GAP 7.1 MEQ/L (5-15); BILIRUBIN,TOTAL 0.1 mg/dL (0.2-1.3); Calcium 7.8 mg/dL (8.4-10.2); Creatinine 1 0.6 mg/dL (0.52-1.04); EST GLOMERULAR FILTRATION RATE 106.6 ML/MIN; MAGNESIUM 1.7 mg/dL (1.6-2.3); Potassium 3.2 mmol/L (3.5-5.1)
[2024-06-17 19:59] LABS: Appearance Clear (Clear); Bacteria None Seen /HPF (None Seen); Bilirubin Negative (Negative); Blood Negative (Negative); Epithelial Cells None Seen /HPF (None Seen); Glucose, Urine >=1000 mg/dL (Negative); Hyaline Casts NONE SEEN /LPF (0-2); Ketones Negative (Negative); Leukocyte Esterase Trace (Negative); Nitrite Negative (Negative); Protein,Urine Dip Negative (Negative); Urobilinogen 0.2 mg/dL (0.2)
[2024-06-17] MEDS: Sodium Chloride 0.9% 500 ML 500 ML IV SCH (20:08)
[2024-06-17 21:06] LABS: ANION GAP 7.3 MEQ/L (5-15); Calcium 7.8 mg/dL (8.4-10.2); Creatinine 1 0.51 mg/dL (0.52-1.04); EST GLOMERULAR FILTRATION RATE 110.9 ML/MIN
[2024-06-17] MEDS ORDERED: IMODIUM 2 MG PO PRN (23:38)
[2024-06-17] MEDS ORDERED: TYLENOL 325 MG PO PRN (23:38)
[2024-06-17] MEDS ORDERED: HUMALOG SQ PRN (23:38)
--- NOTE | 2024-06-18 00:02 | PCM.HP ---
History of Present Illness - Chief Complaint Chief Complaint: hypokalemia Date: 06/17/24 History of Present Illness: is a 53 year old female with history of diabetes, CAD, hypothyroidism, and recent GI bleed, here from PCP office with hypokalemia. Over , patient was in [place] with massive GI bleed requiring 7 units transfusion. She underwent upper and lower endoscopy, but no source of bleeding has been found. However, she has had no further bleeding since then. However, since that time, she has had frequent watery diarrhea, varying between 2 and 13 times per night. No melena since the initial episode. She was recently in [facility] again on 06/05 with that diarrhea, but was evaluated for her stable anemia that has been unchanged. At some point she had a negative C. difficile assay. She developed hypotension, so stopped taking her losartan. She feels generally exhausted from lack of sleep, but denies any focal weakness, numbness, or muscle spasms. She went to her PCP today for routine labs and was noted to be severely hypokalemic, and sent to the ED. she was given potassium chloride 40 mEq x 2 doses, but her levels remained around 3. However, her main concern is the persistent diarrhea that has not yet been resolved. - Review of Systems All Other Systems: Reviewed and Negative Medications & Allergies Home Medications: Home Medication List Atorvastatin Calcium [Lipitor 40Mg] 40 mg PO HS 12/28/22 [History Confirmed 06/17/24] Cholecalciferol (Vitamin D3) [Vitamin D] 50,000 unit PO DAILY 12/28/22 [History Confirmed 06/17/24] Clopidogrel Bisulfate [PLAVIX Tablet] 75 mg PO DAILY 12/28/22 [History Confirmed 06/17/24] Empagliflozin [Jardiance] 25 mg PO DAILY 12/28/22 [History Confirmed 06/17/24] Ezetimibe 10 mg [Zetia 10 MG] 10 mg PO HS 12/28/22 [History Confirmed 06/17/24] Insulin Aspart [Novolog] 10 unit SQ TID 12/28/22 [History Confirmed 06/17/24] Insulin Glargine,Hum.rec.anlog [Basaglar Kwikpen U-100] 30 unit SQ BID 12/28/22 [History Confirmed 06/17/24] Levothyroxine Sodium 150 Mcg [Synthroid 150 Mcg] 150 mcg PO DAILY 12/28/22 [History Confirmed 06/17/24] Metoprolol Succinate [Toprol Xl] 12.5 mg PO DAILY 12/28/22 [History Confirmed 06/17/24] Semaglutide [Ozempic] 2 mg SQ WEEKLY 12/28/22 [History Confirmed 06/17/24] Aspirin EC 81 mg [Ecotrin 81 mg] 81 mg PO DAILY 06/13/23 [History Confirmed 06/17/24] Isosorbide Mononitrate 60 mg [Imdur 60MG] 60 mg PO DAILY 06/15/23 [History Confirmed 06/17/24] Nitroglycerin 0.4 mg (Ed) [Nitrostat 0.4 MG (ED)] 0.4 mg SL UD PRN 06/15/23 [History Confirmed 06/17/24] PANTOPRAZOLE 40 mg Tablet [Protonix 40MG Tablet] 40 mg PO QAM 06/17/24 [History Confirmed 06/17/24] Ropinirole HCl 1 mg PO HS 06/17/24 [History Confirmed 06/17/24] Allergies/Adverse Reactions: Allergies Allergy/AdvReac Type Severity Reaction Status Date / Time latex AdvReac Rash Verified 06/17/24 17:26 metformin AdvReac Diarrhea Verified 06/17/24 17:26 - Past Medical History Past Medical History: Yes Neurological History: No Pertinent History ENT History: No Pertinent History Cardiac History: High Cholesterol, Hypertension, Other Respiratory History: Other Endocrine Medical History: Diabetes Type II, Hypothyroidism Musculoskelatal History: Fractures GI Medical History: GI Bleed, Other History: Other Pyscho-Social History: No Pertinent History Reproductive Disorders: No Pertinent History Comment: blocked heart arteries, 3 stents, bariatric surgery, pleural effusion (2000), kidney stone, Urologist-Dr. Cates, fx-pelvis & L Lower leg - Female History Are you now?: No (menopause) - Past Surgical History Past Surgical History: Yes Neuro Surgical History: No Pertinent History Cardiac History: Cardiac Catheterization, Cardiac Stent Respiratory Surgery: No Pertinent History GI Surgical History: Cholecystectomy Genitourinary Surgical Hx: Kidney Surgery Musculskeletal Surgical Hx: Amputation, Orthopedic Surgery Female Surgical History: Section Other Surgical History: right hand, bariatric, plate in left leg below knee. 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 toe amputation, L foot 1st toe amputation, kidney stent placed & removed Significant Family History: no pertinent family hx - Social History Smoking Status: Never smoker Exposure to second hand smoke: No Alcohol: None Drug Use: none - Social Determinants of Health Will the patient participate in the screening: Yes Do you worry about a steady place to live?: No Do you have any problems with any of the following?: No known problems In the past 12 months,have you had to go without utilities?: No Have you or anyone in your house had to go without enough: No Transportation Issues: No Has anyone in your support network made you feel unsafe?: No - Physical Exam Vital Signs: Vital Signs - 24 hr Temp Pulse Resp BP BP Pulse Ox 06/17/24 23:23 97.1 F 77 16 112/64 99 06/17/24 22:00 78 19 110/59 98 06/17/24 21:30 20 113/63 100 06/17/24 21:00 74 20 123/58 17 L 06/17/24 20:30 16 116/66 100 06/17/24 20:00 74 12 121/78 99 06/17/24 19:30 18 123/76 100 06/17/24 19:03 100 06/17/24 19:00 14 115/72 100 06/17/24 18:30 4 L 120/75 100 06/17/24 18:00 76 15 107/67 100 06/17/24 17:30 80 10 L 103/59 100 06/17/24 17:20 98.4 F 88 10 L 94/55 100 General Appearance: no apparent distress Neurologic Exam: alert, oriented x 3, No motor deficits, No sensory deficit, No motor weakness Eye Exam: eyes nml inspection, No scleral icterus Ears, Nose, Throat Exam: moist mucous membranes Neck Exam: non-tender, supple Respiratory Exam: normal breath sounds, lungs clear, No respiratory distress Cardiovascular Exam: regular rate/rhythm, normal heart sounds, edema (Overall decreased from prior), No murmur Gastrointestinal/Abdomen Exam: No tenderness, No distention Back Exam: normal inspection, normal range of motion Extremity Exam: No inflammation, No joint swelling Skin Exam: dry, No rash Results - Labs Lab/Micro Results: Lab Results-Last 24 Hours 06/17/24 06/17/24 06/17/24 Range/Units 18:45 18:45 19:41 WBC 6.5 (3.98-10.04) x10^3/uL RBC 3.03 L (3.93-5.22) x10^6/uL Hgb 7.7 L (11.2-15.7) g/dL Hct 25.0 L (34.1-44.9) % MCV 82.5 (79.4-94.8) fL MCH 25.4 L (25.6-32.2) pg MCHC 30.8 L (32.2-35.5) g/dL RDW 15.5 H (11.7-14.4) % Plt Count 271 (182-369) x10^3/uL MPV 10.1 (9.4-12.3) fL Gran % 60.4 (34.0-71.1) % Immature Gran % (Auto) 0.3 (0.001-0.429) % Nucleat RBC Rel Count 0.0 (0.00-0.2) % Eos # (Auto) 0.08 (0.04-0.36) x10^3/uL Immature Gran # (Auto) 0.02 (0.001-0.031) x10^3u/L Absolute Lymphs (auto) 1.80 (1.18-3.74) x10^3/uL Absolute Monos (auto) 0.64 (0.24-0.86) x10^3/uL Absolute Nucleated RBC 0.00 (0.00-0.012) x10^3u/L Lymphocytes % 27.7 (19.3-51.7) % Monocytes % 9.9 (4.7-12.5) % Eosinophils % 1.2 (0.7-5.8) % Basophils % 0.5 (0.1-1.2) % Absolute Granulocytes 3.92 (1.56-6.13) x10^3/uL Basophils # 0.03 (0.01-0.08) x10^3/uL Sodium 138 (135-145) mmol/L Potassium 3.2 L (3.5-5.1) mmol/L Chloride 106 (98-107) mmol/L Carbon Dioxide 28 (22-30) mmol/L Anion Gap 7.1 (5-15) MEQ/L BUN 12 (7-17) mg/dL Creatinine 0.60 (0.52-1.04) mg/dL Estimated GFR 106.6 ML/MIN Glucose 72 L (74-106) mg/dL POC Glucometer (74 to 106) mg/dL Calcium 7.8 L (8.4-10.2) mg/dL Magnesium 1.7 (1.6-2.3) mg/dL Total Bilirubin 0.10 L (0.2-1.3) mg/dL AST 148 H (14-36) U/L ALT 152 H (0-35) U/L Alkaline Phosphatase 101 (38-126) U/L Serum Total Protein 5.0 L (6.3-8.2) g/dL Albumin 2.5 L (3.5-5.0) g/dL Urine Color Yellow (Yellow) Urine Appearance Clear (Clear) Urine pH 6.0 (4.6-8.0) Ur Specific [place] 1.010 (1.005-1.030) Urine Protein Negative (Negative) Urine Glucose (UA) >=1000 A (Negative) mg/dL Urine Ketones Negative (Negative) Urine Blood Negative (Negative) Urine Nitrite Negative (Negative) Urine Bilirubin Negative (Negative) Urine Urobilinogen 0.2 (0.2) mg/dL Ur Leukocyte Esterase Trace A (Negative) U Hyaline Cast (Auto) NONE SEEN (0-2) /LPF Urine Microscopic RBC 3-5 (0-5) /HPF Urine Microscopic WBC 6-10 A (0-5) /HPF Ur Epithelial Cells None Seen (None Seen) /HPF Urine Bacteria None Seen (None Seen) /HPF Urine Culture Reflexed NO (NO) 06/17/24 06/17/24 Range/Units 20:48 21:44 WBC (3.98-10.04) x10^3/uL RBC (3.93-5.22) x10^6/uL Hgb (11.2-15.7) g/dL Hct (34.1-44.9) % MCV (79.4-94.8) fL MCH (25.6-32.2) pg MCHC (32.2-35.5) g/dL RDW (11.7-14.4) % Plt Count (182-369) x10^3/uL MPV (9.4-12.3) fL Gran % (34.0-71.1) % Immature Gran % (Auto) (0.001-0.429) % Nucleat RBC Rel Count (0.00-0.2) % Eos # (Auto) (0.04-0.36) x10^3/uL Immature Gran # (Auto) (0.001-0.031) x10^3u/L Absolute Lymphs (auto) (1.18-3.74) x10^3/uL Absolute Monos (auto) (0.24-0.86) x10^3/uL Absolute Nucleated RBC (0.00-0.012) x10^3u/L Lymphocytes % (19.3-51.7) % Monocytes % (4.7-12.5) % Eosinophils % (0.7-5.8) % Basophils % (0.1-1.2) % Absolute Granulocytes (1.56-6.13) x10^3/uL Basophils # (0.01-0.08) x10^3/uL Sodium 139 (135-145) mmol/L Potassium 3.0 L* (3.5-5.1) mmol/L Chloride 107 (98-107) mmol/L Carbon Dioxide 28 (22-30) mmol/L Anion Gap 7.3 (5-15) MEQ/L BUN 11 (7-17) mg/dL Creatinine 0.51 L (0.52-1.04) mg/dL Estimated GFR 110.9 ML/MIN Glucose 48 L* (74-106) mg/dL POC Glucometer 91 (74 to 106) mg/dL Calcium 7.8 L (8.4-10.2) mg/dL Magnesium (1.6-2.3) mg/dL Total Bilirubin (0.2-1.3) mg/dL AST (14-36) U/L ALT (0-35) U/L Alkaline Phosphatase (38-126) U/L Serum Total Protein (6.3-8.2) g/dL Albumin (3.5-5.0) g/dL Urine Color (Yellow) Urine Appearance (Clear) Urine pH (4.6-8.0) Ur Specific [place] (1.005-1.030) Urine Protein (Negative) Urine Glucose (UA) (Negative) mg/dL Urine Ketones (Negative) Urine Blood (Negative) Urine Nitrite (Negative) Urine Bilirubin (Negative) Urine Urobilinogen (0.2) mg/dL Ur Leukocyte Esterase (Negative) U Hyaline Cast (Auto) (0-2) /LPF Urine Microscopic RBC (0-5) /HPF Urine Microscopic WBC (0-5) /HPF Ur Epithelial Cells (None Seen) /HPF Urine Bacteria (None Seen) /HPF Urine Culture Reflexed (NO) Assessment/Plan (1) Hypokalemia Current Visit: Yes Status: Acute Assessment & Plan: 53-year-old with a history of diabetes, hypertension, and recent GI bleed, here with hypokalemia. ## Hypokalemia almost certainly due to patient's persistent diarrhea with ongoing GI losses. Perhaps exacerbated due to cessation of losartan due to hypotension. Asymptomatic. Serum levels did not increase after initial supplementation, likely due to total body depletion including depletion of intracellular stores. Monitor on telemetry Give potassium chloride 40 mEq p.o. and IV Repeat potassium and magnesium levels ## Persistent watery diarrhea with reported negative C. difficile testing. Add PRN loperamide Consider PRN Lomotil if not improving significantly Will need outpatient follow-up with GI ## Type 2 diabetes on insulin at home. Continue Lantus 30 units BID and NovoLog 10 units TID Continue home Jardiance 25 mg daily Placed on moderate dose sliding scale insulin Diabetic diet ## Hypothyroidism Continue home levothyroxine 150 mcg CODE STATUS: Full code Diet: Diabetic Prophylaxis: Low risk, encourage ambulation Dispo: Place in observation, expect patient to go home tomorrow after potassium levels improved Code(s): E87.6 - HYPOKALEMIA Telemedicine Encounter - Telemedicine Encounter Telemedicine Encounter: "The entirety of this encounter was performed via Telemedicine" This visit was performed using real-time audio and video connection between my location and thepatients locationwith the assistance of a surrogateat the patients location. Written or verbal consent was obtained from the patient/guardian to perform this visit [facility]. Any patient questions regarding the telemedicine interaction were answered.
[2024-06-18] MEDS: POTASSIUM CHLORIDE 20 mEq IN WATER 100ML 20 MEQ/100 ML BAG IV SCH (01:07)
[2024-06-18] MEDS: Klor Con PO SCH (01:08)
[2024-06-18 06:16] LABS: Hematocrit 25.3 % (34.1-44.9); Hemoglobin 7.5 g/dL (11.2-15.7); Mean Cell Volume 82.7 fL (79.4-94.8); Mean Corpuscular Hemoglobin 24.5 pg (25.6-32.2); Mean Corpuscular Hgb Concent. 29.6 g/dL (32.2-35.5); Mean Platelet Volume 11.2 fL (9.4-12.3); Platelet Count 288 x10^3/uL (182-369); Red Blood Count 3.06 x10^6/uL (3.93-5.22); Red Cell Distribution Width 15.8 % (11.7-14.4); White Blood Count 5.9 x10^3/uL (3.98-10.04)
[2024-06-18 06:47] LABS: ANION GAP 6.1 MEQ/L (5-15); Calcium 7.4 mg/dL (8.4-10.2); Creatinine 1 0.43 mg/dL (0.52-1.04); EST GLOMERULAR FILTRATION RATE 115.5 ML/MIN; MAGNESIUM 1.7 mg/dL (1.6-2.3)
[2024-06-18 07:22] VITALS: BP 126/73; PULSE 76; RESP 17; TEMP 97.2; O2SAT 97
[2024-06-18] MEDS ORDERED: Sodium Chloride 0.9% 1000 ML 1,000 ML IV SCH (08:00)
[2024-06-18] MEDS: Lantus Insulin SQ SCH (08:12)
[2024-06-18] MEDS: HUMALOG SQ SCH (08:12)
[2024-06-18] MEDS: Imdur 60MG PO SCH (09:51)
[2024-06-18] MEDS: Protonix 40MG Tablet PO SCH (09:51)
[2024-06-18] MEDS: PLAVIX Tablet PO SCH (09:51)
[2024-06-18] MEDS: JARDIANCE PO SCH (09:52)
[2024-06-18] MEDS: SYNTHROID 150 MCG PO SCH (09:52)
[2024-06-18] MEDS: Toprol-Xl 25MG Tablets PO SCH (09:52)
[2024-06-18] MEDS: ECOTRIN 81 MG PO SCH (09:52)
[2024-06-18] MEDS ORDERED: NON-FORMULARY ITEM (Insulin Aspart [Novolog] 100 UNIT/ML Vial) SQ SCH (10:00)
[2024-06-18] MEDS ORDERED: VITAMIN D PO SCH (10:00)
[2024-06-18] MEDS ORDERED: NON-FORMULARY ITEM (Insulin Glargine,Hum.Rec.Anlog [Basaglar Kwikpen U-100] 100 UNIT/ML In SQ SCH (10:00)
--- NOTE | 2024-06-18 11:26 | PCM.DS ---
Discharge Summary Date of Admission: 06/17/24 22:40 Admitting Physician: JAVI NETTLES MD Primary Care Provider: ANUJ AYALA Allergies Allergies latex Adverse Reaction (Verified 06/17/24 17:26) Rash metformin Adverse Reaction (Verified 06/17/24 17:26) Diarrhea Hospital Summary - Hospital Course Hospital Course: This is a patient who presented with hypokalemia, hypoglycemia, and dehydration due to diarrhea. The patient's diarrhea has improved and the potassium is now no rmal after repletion. She has been advised to increase her oral consumption of potassium rich dietary sources over the next few days and drink plenty of fluids. Her blood sugar has improved but it is reasonable for her to decrease her insulin dose over the next 48 hours temporarily with close monitoring of her sugar trend at home. - Vitals & Intake/Output Vital Signs: Vital Signs Temperature 97.2 F 06/18/24 07:21 Pulse Rate 76 06/18/24 07:21 Respiratory Rate 17 06/18/24 07:21 Blood Pressure 126/73 06/18/24 07:21 O2 Sat by Pulse Oximetry 97 06/18/24 07:21 Intake & Output: Intake & Output 06/15/24 06/16/24 06/17/24 06/18/24 11:59 11:59 11:59 11:59 Intake Total 620 Balance 620 Weight 80.3 kg - Lab Result Diagrams: 06/18/24 06:08 06/18/24 07:31 Lab Results-Last 24 Hrs: Lab Results-Last 24 Hours 06/17/24 06/17/24 06/17/24 Range/Units 18:45 18:45 19:41 WBC 6.5 (3.98-10.04) x10^3/uL RBC 3.03 L (3.93-5.22) x10^6/uL Hgb 7.7 L (11.2-15.7) g/dL Hct 25.0 L (34.1-44.9) % MCV 82.5 (79.4-94.8) fL MCH 25.4 L (25.6-32.2) pg MCHC 30.8 L (32.2-35.5) g/dL RDW 15.5 H (11.7-14.4) % Plt Count 271 (182-369) x10^3/uL MPV 10.1 (9.4-12.3) fL Gran % 60.4 (34.0-71.1) % Immature Gran % (Auto) 0.3 (0.001-0.429) % Nucleat RBC Rel Count 0.0 (0.00-0.2) % Eos # (Auto) 0.08 (0.04-0.36) x10^3/uL Immature Gran # (Auto) 0.02 (0.001-0.031) x10^3u/L Absolute Lymphs (auto) 1.80 (1.18-3.74) x10^3/uL Absolute Monos (auto) 0.64 (0.24-0.86) x10^3/uL Absolute Nucleated RBC 0.00 (0.00-0.012) x10^3u/L Lymphocytes % 27.7 (19.3-51.7) % Monocytes % 9.9 (4.7-12.5) % Eosinophils % 1.2 (0.7-5.8) % Basophils % 0.5 (0.1-1.2) % Absolute Granulocytes 3.92 (1.56-6.13) x10^3/uL Basophils # 0.03 (0.01-0.08) x10^3/uL Sodium 138 (135-145) mmol/L Potassium 3.2 L (3.5-5.1) mmol/L Chloride 106 (98-107) mmol/L Carbon Dioxide 28 (22-30) mmol/L Anion Gap 7.1 (5-15) MEQ/L BUN 12 (7-17) mg/dL Creatinine 0.60 (0.52-1.04) mg/dL Estimated GFR 106.6 ML/MIN Glucose 72 L (74-106) mg/dL POC Glucometer (74 to 106) mg/dL Calcium 7.8 L (8.4-10.2) mg/dL Magnesium 1.7 (1.6-2.3) mg/dL Total Bilirubin 0.10 L (0.2-1.3) mg/dL AST 148 H (14-36) U/L ALT 152 H (0-35) U/L Alkaline Phosphatase 101 (38-126) U/L Serum Total Protein 5.0 L (6.3-8.2) g/dL Albumin 2.5 L (3.5-5.0) g/dL Urine Color Yellow (Yellow) Urine Appearance Clear (Clear) Urine pH 6.0 (4.6-8.0) Ur Specific [place] 1.010 (1.005-1.030) Urine Protein Negative (Negative) Urine Glucose (UA) >=1000 A (Negative) mg/dL Urine Ketones Negative (Negative) Urine Blood Negative (Negative) Urine Nitrite Negative (Negative) Urine Bilirubin Negative (Negative) Urine Urobilinogen 0.2 (0.2) mg/dL Ur Leukocyte Esterase Trace A (Negative) U Hyaline Cast (Auto) NONE SEEN (0-2) /LPF Urine Microscopic RBC 3-5 (0-5) /HPF Urine Microscopic WBC 6-10 A (0-5) /HPF Ur Epithelial Cells None Seen (None Seen) /HPF Urine Bacteria None Seen (None Seen) /HPF Urine Culture Reflexed NO (NO) 06/17/24 06/17/24 06/18/24 Range/Units 20:48 21:44 06:08 WBC 5.9 (3.98-10.04) x10^3/uL RBC 3.06 L (3.93-5.22) x10^6/uL Hgb 7.5 L (11.2-15.7) g/dL Hct 25.3 L (34.1-44.9) % MCV 82.7 (79.4-94.8) fL MCH 24.5 L (25.6-32.2) pg MCHC 29.6 L (32.2-35.5) g/dL RDW 15.8 H (11.7-14.4) % Plt Count 288 (182-369) x10^3/uL MPV 11.2 (9.4-12.3) fL Gran % (34.0-71.1) % Immature Gran % (Auto) (0.001-0.429) % Nucleat RBC Rel Count (0.00-0.2) % Eos # (Auto) (0.04-0.36) x10^3/uL Immature Gran # (Auto) (0.001-0.031) x10^3u/L Absolute Lymphs (auto) (1.18-3.74) x10^3/uL Absolute Monos (auto) (0.24-0.86) x10^3/uL Absolute Nucleated RBC (0.00-0.012) x10^3u/L Lymphocytes % (19.3-51.7) % Monocytes % (4.7-12.5) % Eosinophils % (0.7-5.8) % Basophils % (0.1-1.2) % Absolute Granulocytes (1.56-6.13) x10^3/uL Basophils # (0.01-0.08) x10^3/uL Sodium 139 (135-145) mmol/L Potassium 3.0 L* (3.5-5.1) mmol/L Chloride 107 (98-107) mmol/L Carbon Dioxide 28 (22-30) mmol/L Anion Gap 7.3 (5-15) MEQ/L BUN 11 (7-17) mg/dL Creatinine 0.51 L (0.52-1.04) mg/dL Estimated GFR 110.9 ML/MIN Glucose 48 L* (74-106) mg/dL POC Glucometer 91 (74 to 106) mg/dL Calcium 7.8 L (8.4-10.2) mg/dL Magnesium (1.6-2.3) mg/dL Total Bilirubin (0.2-1.3) mg/dL AST (14-36) U/L ALT (0-35) U/L Alkaline Phosphatase (38-126) U/L Serum Total Protein (6.3-8.2) g/dL Albumin (3.5-5.0) g/dL Urine Color (Yellow) Urine Appearance (Clear) Urine pH (4.6-8.0) Ur Specific [place] (1.005-1.030) Urine Protein (Negative) Urine Glucose (UA) (Negative) mg/dL Urine Ketones (Negative) Urine Blood (Negative) Urine Nitrite (Negative) Urine Bilirubin (Negative) Urine Urobilinogen (0.2) mg/dL Ur Leukocyte Esterase (Negative) U Hyaline Cast (Auto) (0-2) /LPF Urine Microscopic RBC (0-5) /HPF Urine Microscopic WBC (0-5) /HPF Ur Epithelial Cells (None Seen) /HPF Urine Bacteria (None Seen) /HPF Urine Culture Reflexed (NO) 06/18/24 06/18/2425 Range/Units 06:08 06:59 07:31 WBC (3.98-10.04) x10^3/uL RBC (3.93-5.22) x10^6/uL Hgb (11.2-15.7) g/dL Hct (34.1-44.9) % MCV (79.4-94.8) fL MCH (25.6-32.2) pg MCHC (32.2-35.5) g/dL RDW (11.7-14.4) % Plt Count (182-369) x10^3/uL MPV (9.4-12.3) fL Gran % (34.0-71.1) % Immature Gran % (Auto) (0.001-0.429) % Nucleat RBC Rel Count (0.00-0.2) % Eos # (Auto) (0.04-0.36) x10^3/uL Immature Gran # (Auto) (0.001-0.031) x10^3u/L Absolute Lymphs (auto) (1.18-3.74) x10^3/uL Absolute Monos (auto) (0.24-0.86) x10^3/uL Absolute Nucleated RBC (0.00-0.012) x10^3u/L Lymphocytes % (19.3-51.7) % Monocytes % (4.7-12.5) % Eosinophils % (0.7-5.8) % Basophils % (0.1-1.2) % Absolute Granulocytes (1.56-6.13) x10^3/uL Basophils # (0.01-0.08) x10^3/uL Sodium 140 (135-145) mmol/L Potassium 4.0 D 4.3 (3.5-5.1) mmol/L Chloride 111 H (98-107) mmol/L Carbon Dioxide 27 (22-30) mmol/L Anion Gap 6.1 (5-15) MEQ/L BUN 9 (7-17) mg/dL Creatinine 0.43 L (0.52-1.04) mg/dL Estimated GFR 115.5 ML/MIN Glucose 38 L* (74-106) mg/dL POC Glucometer 51 L (74 to 106) mg/dL Calcium 7.4 L (8.4-10.2) mg/dL Magnesium 1.7 (1.6-2.3) mg/dL Total Bilirubin (0.2-1.3) mg/dL AST (14-36) U/L ALT (0-35) U/L Alkaline Phosphatase (38-126) U/L Serum Total Protein (6.3-8.2) g/dL Albumin (3.5-5.0) g/dL Urine Color (Yellow) Urine Appearance (Clear) Urine pH (4.6-8.0) Ur Specific [place] (1.005-1.030) Urine Protein (Negative) Urine Glucose (UA) (Negative) mg/dL Urine Ketones (Negative) Urine Blood (Negative) Urine Nitrite (Negative) Urine Bilirubin (Negative) Urine Urobilinogen (0.2) mg/dL Ur Leukocyte Esterase (Negative) U Hyaline Cast (Auto) (0-2) /LPF Urine Microscopic RBC (0-5) /HPF Urine Microscopic WBC (0-5) /HPF Ur Epithelial Cells (None Seen) /HPF Urine Bacteria (None Seen) /HPF Urine Culture Reflexed (NO) 06/18/24 Range/Units 08:16 WBC (3.98-10.04) x10^3/uL RBC (3.93-5.22) x10^6/uL Hgb (11.2-15.7) g/dL Hct (34.1-44.9) % MCV (79.4-94.8) fL MCH (25.6-32.2) pg MCHC (32.2-35.5) g/dL RDW (11.7-14.4) % Plt Count (182-369) x10^3/uL MPV (9.4-12.3) fL Gran % (34.0-71.1) % Immature Gran % (Auto) (0.001-0.429) % Nucleat RBC Rel Count (0.00-0.2) % Eos # (Auto) (0.04-0.36) x10^3/uL Immature Gran # (Auto) (0.001-0.031) x10^3u/L Absolute Lymphs (auto) (1.18-3.74) x10^3/uL Absolute Monos (auto) (0.24-0.86) x10^3/uL Absolute Nucleated RBC (0.00-0.012) x10^3u/L Lymphocytes % (19.3-51.7) % Monocytes % (4.7-12.5) % Eosinophils % (0.7-5.8) % Basophils % (0.1-1.2) % Absolute Granulocytes (1.56-6.13) x10^3/uL Basophils # (0.01-0.08) x10^3/uL Sodium (135-145) mmol/L Potassium (3.5-5.1) mmol/L Chloride (98-107) mmol/L Carbon Dioxide (22-30) mmol/L Anion Gap (5-15) MEQ/L BUN (7-17) mg/dL Creatinine (0.52-1.04) mg/dL Estimated GFR ML/MIN Glucose (74-106) mg/dL POC Glucometer 138 H (74 to 106) mg/dL Calcium (8.4-10.2) mg/dL Magnesium (1.6-2.3) mg/dL Total Bilirubin (0.2-1.3) mg/dL AST (14-36) U/L ALT (0-35) U/L Alkaline Phosphatase (38-126) U/L Serum Total Protein (6.3-8.2) g/dL Albumin (3.5-5.0) g/dL Urine Color (Yellow) Urine Appearance (Clear) Urine pH (4.6-8.0) Ur Specific [place] (1.005-1.030) Urine Protein (Negative) Urine Glucose (UA) (Negative) mg/dL Urine Ketones (Negative) Urine Blood (Negative) Urine Nitrite (Negative) Urine Bilirubin (Negative) Urine Urobilinogen (0.2) mg/dL Ur Leukocyte Esterase (Negative) U Hyaline Cast (Auto) (0-2) /LPF Urine Microscopic RBC (0-5) /HPF Urine Microscopic WBC (0-5) /HPF Ur Epithelial Cells (None Seen) /HPF Urine Bacteria (None Seen) /HPF Urine Culture Reflexed (NO) Micro Results-Entire Visit: Accuchecks Date 06/18/24 Time 07:19 Discharge Exam General Appearance: no apparent distress, alert Neurologic Exam: alert, oriented x 3, cooperative, tooth cutter spur II-XII nml as tested, normal mood/affect, nml cerebellar function, nml station & gait, sensation nml Eye Exam: PERRL, EOMI, eyes nml inspection Ears, Nose, Throat Exam: normal ENT inspection Neck Exam: normal inspection, non-tender, supple, full range of motion Respiratory Exam: normal breath sounds, lungs clear Cardiovascular Exam: regular rate/rhythm, normal heart sounds Gastrointestinal/Abdomen Exam: soft, normal bowel sounds Back Exam: normal range of motion Extremity Exam: normal inspection, normal range of motion Skin Exam: normal color, warm Telemedicine Encounter - Telemedicine Encounter Telemedicine Encounter: "The entirety of this encounter was performed via Telemedicine" This visit was performed using real-time audio and video connection between my location and thepatients locationwith the assistance of a surrogateat the patients location. Written or verbal consent was obtained from the patient/guardian to perform this visit [email or web address] technology. Any patient questions regarding the telemedicine interaction were answered. Please note that this discharge required greater than 30 minutes to complete. - Discharge Disposition: Home, Self-Care Condition: Stable Prescriptions: Continue Insulin Glargine,Hum.rec.anlog [Basaglar Kwikpen U-100] 30 unit SQ BID Insulin Aspart [Novolog] 10 unit SQ TID Semaglutide [Ozempic] 2 mg SQ WEEKLY Cholecalciferol (Vitamin D3) [Vitamin D] 50,000 unit PO DAILY Ezetimibe 10 mg [Zetia 10 MG] 10 mg PO HS Empagliflozin [Jardiance] 25 mg PO DAILY Metoprolol Succinate [Toprol Xl] 12.5 mg PO DAILY Levothyroxine Sodium 150 Mcg [Synthroid 150 Mcg] 150 mcg PO DAILY Clopidogrel Bisulfate [PLAVIX Tablet] 75 mg PO DAILY Atorvastatin Calcium [Lipitor 40Mg] 40 mg PO HS Aspirin EC 81 mg [Ecotrin 81 mg] 81 mg PO DAILY Nitroglycerin 0.4 mg (Ed) [Nitrostat 0.4 MG (ED)] 0.4 mg SL UD PRN PRN Reason: Pain Isosorbide Mononitrate 60 mg [Imdur 60MG] 60 mg PO DAILY PANTOPRAZOLE 40 mg Tablet [Protonix 40MG Tablet] 40 mg PO QAM Ropinirole HCl 1 mg PO HS Instructions: Hypokalemia, High-potassium diet Additional Instructions: Drink plenty of fluids and increase your dietary sources of potassium rich foods (e.g. bananas) over the next 2-3 days. Take OTC diarrhea medications as needed. Decrease your insulin dose over the next 2 days and monitor your sugars closely. Follow up with: ANUJ AYALA MD [Primary Care Provider] - Call for Appointment (FOLLOW-UP IN 1 WEEK ) Forms: Discharge Instructions
[2024-06-18] MEDS ORDERED: Requip 0.5 MG PO SCH (22:00)
[2024-06-18] MEDS ORDERED: LIPITOR 40MG PO SCH (22:00)
[2024-06-18] MEDS ORDERED: NON-FORMULARY ITEM (Ropinirole Hcl [Ropinirole Hcl] 1 MG Tablet) PO SCH (22:00)
[2024-06-18] MEDS ORDERED: ZOCOR 20MG PO SCH (22:00)
[2024-06-18] MEDS ORDERED: Zetia 10 MG PO SCH (22:00)
[2024-06-23] MEDS ORDERED: VITAMIN D2 PO SCH (10:00)
== END 2024-06-18 11:39 | disposition home or self-care (01) ==
LOC: ED 17:07 → MED SURG 22:40
PROVIDERS: ADMIT Internal Medicine; ATTEND Internal Medicine
DX: E87.6 Hypokalemia (principal); R19.7 Diarrhea, unspecified; E86.0 Dehydration; E11.649 Type 2 diabetes mellitus with hypoglycemia without coma; I25.10 Atherosclerotic heart disease of native coronary artery without angina pectoris; E03.9 Hypothyroidism, unspecified; Z87.19 Personal history of other diseases of the digestive system; D64.9 Anemia, unspecified; Z79.899 Other long term (current) drug therapy; Z79.01 Long term (current) use of anticoagulants
CPT/HCPCS: 36415; 80048; 80053; 81001; 82947; 83735; 84132; 85025; 85027; 99284; G0378; Q3014; J3480; A9270-GY